=== PATIENT | male | born 1950 | race Caucasian/White ===

== ENCOUNTER 2020-09-15 13:31 | Emergency (ER) | payer MEDICARE, OTHER ==
[2020-09-15] MEDS ORDERED: Nitrostat 0.4 MG (ED) SL ONE ×2 (13:33→13:46)
[2020-09-15] MEDS ORDERED: BABY ASPIRIN 81 MG CHEW PO ONE (13:33)
--- NOTE | 2020-09-15 13:36 | ERPHSYRPT ---
- History of Present Illness Time Seen by Provider: 09/15/20 13:36 Historian: patient Exam Limitations: no limitations Physician History: This is a diabetic patient with htn on lisinopril and is a [facility]. He is a 70-year-old white male with known cardiac history and has had myocardial infarction in the past. Patient has sharp left anterior chest pain that was int ermittent since this morning. It radiated down to his left shoulder and arm. He has no shortness of breath he has no abdominal pain he had no cough. Patient took 2 baby aspirin this morning. He did not take any nitroglycerin. Timing/Duration: today Activities at Onset: none Quality: sharpness, stabbing Location: other (Left anterior chest) Chest Pain Radiation: arm Severity of Pain-Max: mild Severity of Pain-Current: mild Modifying Factors: Improves With: nothing Associated Symptoms: denies symptoms, No shortness of breath, No cough, No diaphoresis Prior Chest Pain/Cardiac Workup: heart attack Nitro Today/Relief: no nitro taken today Aspirin Treatment Today: 81 mg x 2 Allergies/Adverse Reactions: Sulfa (Sulfonamide Antibiotics) Allergy (Severe, Verified 09/15/20 13:42) Home Medications: Glipizide [Glipizide ER] 10 mg PO DAILY 09/15/20 [History] Lisinopril 20 mg [Zestril 20 MG] 20 mg PO DAILY 09/15/20 [History] Metformin HCl [Glucophage] 1,000 mg PO DAILY 09/15/20 [History] Pantoprazole 20 mg [Protonix 20MG Tablet] 20 mg PO DAILY 09/15/20 [History] Travel Risk - International Travel Have you traveled outside of the country in past 3 weeks: No - Coronavirus Screening Are you exhibiting any of the following symptoms?: No Close contact with a COVID-19 positive Pt in past 14-21 Days: No - Review of Systems Constitutional: No Symptoms Eyes: No Symptoms Ears, Nose, & Throat: No Symptoms Respiratory: No Symptoms Cardiac: Chest Pain Abdominal/Gastrointestinal: No Symptoms Genitourinary Symptoms: No Symptoms Musculoskeletal: No Symptoms Skin: No Symptoms Neurological: No Symptoms Psychological: No Symptoms Endocrine: No Symptoms Hematologic/Lymphatic: No Symptoms Immunological/Allergic: No Symptoms All Other Systems: Reviewed and Negative - Past Medical History Pertinent Past Medical History: No Neurological History: No Pertinent History ENT History: No Pertinent History Cardiac History: No Pertinent History, Coronary Artery Disease, Hypertension, Myocardial Infarction ([place]) Respiratory History: No Pertinent History - Nursing Vital Signs Nursing Vital Signs: Initial Vital Signs Temperature 99.1 F 09/15/20 13:33 Pulse Rate 74 09/15/20 13:33 Respiratory Rate 20 09/15/20 13:33 Blood Pressure 205/109 09/15/20 13:33 O2 Sat by Pulse Oximetry 96 09/15/20 13:33 Pain Scale Pain Intensity 5 - Physical Exam General Appearance: no apparent distress, alert Eye Exam: PERRL/EOMI, eyes nml inspection Ears, Nose, Throat Exam: normal ENT inspection, moist mucous membranes Neck Exam: normal inspection, non-tender, supple, full range of motion Respiratory Exam: normal breath sounds, chest tenderness, lungs clear, airway intact, No respiratory distress Cardiovascular Exam: regular rate/rhythm, normal heart sounds, normal peripheral pulses Gastrointestinal/Abdomen Exam: soft, normal bowel sounds, No tenderness Rectal Exam: not done Back Exam: normal inspection, normal range of motion, No CVA tenderness, No vertebral tenderness Extremity Exam: normal inspection, normal range of motion, pelvis stable Neurologic Exam: alert, oriented x 3, cooperative, auto hauler II-XII nml as tested, normal mood/affect, nml cerebellar function, nml station & gait, sensation nml Skin Exam: normal color, warm, dry Lymphatic Exam: No adenopathy SpO2 Interpretation: normal O2 Delivery: Room Air - Course Nursing assessment & vital signs reviewed: Yes EKG Interpreted by Me: RATE ([id number]), Sinus Rhythm, NORMAL AXIS, NORMAL INTERVALS, NORMAL QRS, Other (No comparison EKG available) Ordered Tests: Active Orders 24 hr Category Date Time Status Compressor Battery Pellets STAT Care 09/15/20 13:34 Active EKG-ER Only STAT Care 09/15/20 13:33 Active IV Insertion STAT Care 09/15/20 13:33 Active Pulse Oximetry (ED) STAT Care 09/15/20 13:33 Active CHEST 1 VIEW (PORTABLE) Stat Exams 09/15/20 13:34 Completed CBC W DIFF Stat Lab 09/15/20 13:46 Completed CMP Stat Lab 09/15/20 13:46 Completed D-DIMER QUANTITATIVE Stat Lab 09/15/20 13:46 Completed NT PRO BNP Stat Lab 09/15/20 13:46 Completed PROTIME WITH INR Stat Lab 09/15/20 13:46 Completed TROPONIN Q3H Lab 09/15/20 13:46 Completed TROPONIN Q3H Lab 09/15/20 16:50 Completed TROPONIN Q3H Lab 09/15/20 19:45 Ordered TROPONIN Q3H Lab 09/15/20 22:45 Ordered TROPONIN Q3H Lab 09/16/20 01:45 Ordered Medication Summary Discontinued Medications Generic Name Dose Route Start Last Admin Trade Name Marvin PRN Reason Stop Dose Admin Aspirin 324 mg 09/15/20 13:33 09/15/20 13:48 Baby Aspirin 81 Mg Chew PO 09/15/20 13:34 324 mg STAT ONE Administration Aspirin Confirm 09/15/20 13:46 Baby Aspirin 81 Mg Chew Administered 09/15/20 13:47 Dose 324 mg .ROUTE .STK-MED ONE Enalaprilat 1.25 mg 09/15/20 13:40 09/15/20 13:53 Vasotec I.V. 2.5 Mg IV 09/15/20 13:41 1.25 mg STAT ONE Administration Enalaprilat Confirm 09/15/20 13:52 Vasotec I.V. 2.5 Mg Administered 09/15/20 13:53 Dose 2.5 mg IV .STK-MED ONE Morphine Sulfate 4 mg 09/15/20 13:40 09/15/20 13:49 Morphine Sulfate 4 Mg Inj IV 09/15/20 13:41 4 mg STAT ONE Administration Morphine Sulfate Confirm 09/15/20 13:46 Morphine Sulfate 4 Mg Inj Administered 09/15/20 13:47 Dose 4 mg .ROUTE .STK-MED ONE Nitroglycerin 0.4 mg 09/15/20 13:33 09/15/20 13:49 Nitrostat 0.4 Mg (Ed) SL 09/15/20 13:34 0.4 mg STAT ONE Administration Nitroglycerin Confirm 09/15/20 13:46 Nitrostat 0.4 Mg (Ed) Administered 09/15/20 13:47 Dose 0.4 mg SL .STK-MED ONE Ondansetron HCl 4 mg 09/15/20 13:41 09/15/20 13:49 Zofran 4 Mg/2 Ml Vial IV 09/15/20 13:42 4 mg STAT ONE Administration Ondansetron HCl Confirm 09/15/20 13:46 Zofran 4 Mg/2 Ml Vial Administered 09/15/20 13:47 Dose 4 mg .ROUTE .STK-MED ONE Lab/Rad Data: Laboratory Result Diagrams 09/15/20 13:46 09/15/20 13:46 Laboratory Results 09/15/20 09/15/20 09/15/20 Range/Units 16:50 13:46 13:46 WBC (4.0-10.5) K/mm3 RBC (4.1-5.6) M/mm3 Hgb (12.5-18.0) gm/dl Hct (42-50) % MCV (78-100) fl MCH (26-32) pg MCHC (32-36) g/dl RDW (11.5-14.0) % Plt Count (150-450) K/mm3 MPV (7.5-11.0) fl Gran % (36.0-66.0) % Eos # (Auto) (0-0.5) Absolute Lymphs (auto) (1.0-4.6) Absolute Monos (auto) (0.0-1.3) Lymphocytes % (24.0-44.0) % Monocytes % (0.0-12.0) % Eosinophils % (0.00-5.0) % Basophils % (0.0-0.4) % Absolute Granulocytes (1.4-6.9) Basophils # (0-0.4) PT 12.6 (8.83-12.87) SECONDS INR 1.11 (0.8-3.0) D-Dimer 354 (215-500) ng/mL Sodium (137-145) mmol/L Potassium (3.5-5.1) mmol/L Chloride (98-107) mmol/L Carbon Dioxide (22-30) mmol/L Anion Gap (5-15) MEQ/L BUN (9-20) mg/dL Creatinine (0.66-1.25) mg/dL Estimated GFR ML/MIN Glucose (74-106) mg/dL Calcium (8.4-10.2) mg/dL Total Bilirubin (0.2-1.3) mg/dL AST (17-59) U/L ALT (0-50) U/L Alkaline Phosphatase (38-126) U/L Troponin I < 0.012 < 0.012 (0.000-0.034) ng/mL NT-Pro-B Natriuret Pep (0-900) pg/mL Serum Total Protein (6.3-8.2) g/dL Albumin (3.5-5.0) g/dL 09/15/20 09/15/20 Range/Units 13:46 13:46 WBC 5.2 (4.0-10.5) K/mm3 RBC 4.61 (4.1-5.6) M/mm3 Hgb 13.7 (12.5-18.0) gm/dl Hct 40.7 L (42-50) % MCV 88.3 (78-100) fl MCH 29.7 (26-32) pg MCHC 33.7 (32-36) g/dl RDW 13.6 (11.5-14.0) % Plt Count 153 (150-450) K/mm3 MPV 11.7 H (7.5-11.0) fl Gran % 69.1 H (36.0-66.0) % Eos # (Auto) 0.10 (0-0.5) Absolute Lymphs (auto) 1.06 (1.0-4.6) Absolute Monos (auto) 0.44 (0.0-1.3) Lymphocytes % 20.2 L (24.0-44.0) % Monocytes % 8.4 (0.0-12.0) % Eosinophils % 1.9 (0.00-5.0) % Basophils % 0.4 (0.0-0.4) % Absolute Granulocytes 3.62 (1.4-6.9) Basophils # 0.02 (0-0.4) PT (8.83-12.87) SECONDS INR (0.8-3.0) D-Dimer (215-500) ng/mL Sodium 139 (137-145) mmol/L Potassium 4.5 (3.5-5.1) mmol/L Chloride 105 (98-107) mmol/L Carbon Dioxide 28 (22-30) mmol/L Anion Gap 11.0 (5-15) MEQ/L BUN 13 (9-20) mg/dL Creatinine 1.06 (0.66-1.25) mg/dL Estimated GFR > 60.0 ML/MIN Glucose 134 H (74-106) mg/dL Calcium 9.3 (8.4-10.2) mg/dL Total Bilirubin 0.60 (0.2-1.3) mg/dL AST 24 (17-59) U/L ALT 19 (0-50) U/L Alkaline Phosphatase 72 (38-126) U/L Troponin I (0.000-0.034) ng/mL NT-Pro-B Natriuret Pep 286 (0-900) pg/mL Serum Total Protein 6.7 (6.3-8.2) g/dL Albumin 4.4 (3.5-5.0) g/dL - Progress Progress: improved, re-examined Air Movement: good Progress Note: 09/15/20 17:11 Chest x-ray shows no acute cardiopulmonary process. 09/15/20 17:55 Medical decision making: This patient has his blood pressure now under control. I believe his hypertension was causing his chest pain. I do not believe that the patient is having myocardial infarction. Patient states, at the time of discharge, he has no further chest pain he has no dizziness he is feeling well. He desires to be discharged to home. Blood Culture(s) Obtained: No Antibiotics given: No Counseled pt/family regarding: lab results, diagnosis, need for follow-up, rad results - Departure Departure Disposition: Home Clinical Impression: Chest pain, Hypertension, Hypertensive urgency Condition: Stable Critical Care Time: Yes Critical Care Time(excluding separately billable procedures): Critical 30-74 mins Referrals: DOCTOR,NO FAMILY [Primary Care Provider] - Additional Instructions: Call your production painter tomorrow morning to make arrangements for follow-up appointment. Take all your medication as prescribed.
[2020-09-15] MEDS ORDERED: MORPHINE SULFATE 4 MG INJ IV ONE (13:40)
[2020-09-15] MEDS ORDERED: VASOTEC I.V. 2.5 MG IV ONE ×2 (13:40→13:52)
[2020-09-15] MEDS ORDERED: Zofran 4 MG/2 ML VIAL IV ONE (13:41)
[2020-09-15] MEDS ORDERED: BABY ASPIRIN 81 MG CHEW ONE (13:46)
[2020-09-15] MEDS ORDERED: Zofran 4 MG/2 ML VIAL ONE (13:46)
[2020-09-15] MEDS ORDERED: MORPHINE SULFATE 4 MG INJ ONE (13:46)
[2020-09-15 13:49] LABS: Absolute Neutrophil Ct (ANC) 3.62 (1.4-6.9); BASOPHIL % 0.4 % (0.0-0.4); Basophil (Absolute #) 0.02 (0-0.4); Eosinophil % 1.9 % (0.00-5.0); Hematocrit 40.7 % (42-50); Hemoglobin 13.7 gm/dl (12.5-18.0); Lymphocyte (Absolute #) 1.06 (1.0-4.6); Lymphocytes % 20.2 % (24.0-44.0); Mean Cell Volume 88.3 fl (78-100); Mean Corpuscular Hemoglobin 29.7 pg (26-32); Mean Corpuscular Hgb Concent. 33.7 g/dl (32-36); Mean Platelet Volume 11.7 fl (7.5-11.0); Monocyte (Absolute #) 0.44 (0.0-1.3); Monocytes % 8.4 % (0.0-12.0); Neutrophil % 69.1 % (36.0-66.0); Platelet Count 153 K/mm3 (150-450); Red Blood Count 4.61 M/mm3 (4.1-5.6); Red Cell Distribution Width 13.6 % (11.5-14.0); White Blood Count 5.2 K/mm3 (4.0-10.5)
--- NOTE | 2020-09-15 13:56 | XRAY ---
Indication: Chest pain. Comparison: None Portable chest demonstrates normal heart and lungs with incidental CABG surgery. Bony thorax intact with minimal degenerative changes.
[2020-09-15 14:01] LABS: INR 1.11 (0.8-3.0); PROTIME 12.6 SECONDS (8.83-12.87)
[2020-09-15 14:15] LABS: ALBUMIN 4.4 g/dL (3.5-5.0); ALKALINE PHOSPHATASE 72 U/L (38-126); BLOOD UREA NITROGEN 13 mg/dL (9-20); CHLORIDE 105 mmol/L (98-107); Calcium 9.3 mg/dL (8.4-10.2); Carbon Dioxide 28 mmol/L (22-30); Creatinine 1 1.06 mg/dL (0.66-1.25); EST GLOMERULAR FILTRATION RATE > 60.0 ML/MIN; Glucose 134 mg/dL (74-106); NT PRO BNP 286 pg/mL (0-900); Potassium 4.5 mmol/L (3.5-5.1); SGOT/AST 24 U/L (17-59); SGPT/ALT 19 U/L (0-50); SODIUM 139 mmol/L (137-145); Total Protein 6.7 g/dL (6.3-8.2)
[2020-09-15 17:57] VITALS: BP 145/79; PULSE 66; O2SAT 98
== END 2020-09-15 18:09 | disposition home or self-care (01) ==
LOC: ED 13:31
DX: R07.89 Other chest pain (principal); I10 Essential (primary) hypertension; I16.0 Hypertensive urgency; I25.2 Old myocardial infarction; Z79.899 Other long term (current) drug therapy; I25.10 Atherosclerotic heart disease of native coronary artery without angina pectoris
CPT/HCPCS: 36000; 36415; 71045; 80053; 83880; 84484; 85025; 85379; 85610; 93005; 93041; 94760; 96374; 96375; 99284; 99291; J2270; J2405; A9270-GY